=== PATIENT | male | born 1990 | race Caucasian/White ===

== ENCOUNTER 2018-04-25 01:41 | Inpatient (IN) ==
--- NOTE | 2018-04-25 02:09 | Emergency Department Note ---
Disposition Clinical Impression: Suicidal ideation Disposition: Admitted As Inpatient Condition: Fair Forms: ED Satisfaction Letter General Adult HPI - General Chief complaint: ED Psychiatric Symptoms Stated complaint: SI Time Seen by Provider: 04/25/18 02:05 Source: patient Limitations: no limitations - History of Present Illness HPI Narrative: Pt transferred for psych eval. Required labs already completed at outlying facility. Presenting with SI, still having suicidal thoughts now. No HI. No complaint of fever, pain, vomiting or other physical complaint. Pain Scale: 0 All systems ED: reviewed and negative except as stated. Past Medical History - Past Medical History Medical history: Reports: no medical history Psychiatric history: Reports: depression - Social History Smoking Status: Never smoker Smokeless Tobacco Status: No Alcohol use: Reports: occasionally Drug use: Reports: none Physical Exam Vital signs noted, please see nurses notes. General: Well-developed, well-nourished patient sitting up in bed who appears non-toxic. Head: Atraumatic, normocephalic. Eyes: Sclera anicteric. ENT: Mucous membranes moist. Respiratory: Normal respiratory pattern without respiratory distress. Skin: Warm and dry, no appreciable rash. Neurological: Awake and alert with normal speech, gait and mental status. No focal deficits or lateralizing signs. Psychiatric: Normal mood and affect. Makes good eye contact. - General Limitations: no limitations General appearance: alert Course Vital Signs Temperature 98.3 F 04/25/18 01:49 Pulse Rate 91 04/25/18 01:49 Respiratory Rate 16 04/25/18 01:49 Blood Pressure 125/76 04/25/18 01:49 O2 Sat by Pulse Oximetry 99 04/25/18 01:49 Temperature 98.3 F 04/25/18 01:49 Pulse Rate 91 04/25/18 01:49 Respiratory Rate 16 04/25/18 01:49 Blood Pressure 125/76 04/25/18 01:49 O2 Sat by Pulse Oximetry 99 04/25/18 01:49 Oxygen Delivery Oxygen Delivery Room Air
[2018-04-25] MEDS ORDERED: *HR* LORazepam 2 MG/ML VIAL IM PRN (05:22)
[2018-04-25] MEDS ORDERED: *HR* LORazepam 1 MG TABLET PO PRN (05:22)
[2018-04-25] MEDS ORDERED: Haloperidol Lactate 5 MG/ML VIAL IM PRN (05:22)
[2018-04-25] MEDS ORDERED: Mag Hydrox/Al Hydrox/Simeth 30 ML UDC PO PRN (05:22)
[2018-04-25] MEDS ORDERED: hydrOXYzine pamoate 25 MG CAPSULE PO PRN (05:22)
[2018-04-25] MEDS ORDERED: MOM Conc 10 ML UD.LIQ PO PRN (05:22)
[2018-04-25] MEDS ORDERED: traZODone 50 MG TABLET PO PRN (05:22)
[2018-04-25] MEDS ORDERED: Ibuprofen 400 MG TABLET PO PRN (05:22)
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
[2018-04-25] MEDS: risperiDONE 1 MG TABLET PO SCH (20:53)
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
[2018-04-26] MEDS: risperiDONE 1 MG TABLET PO SCH (20:31)
[2018-04-27 09:10] VITALS: BP 126/79
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
== END 2018-04-27 18:55 | disposition home or self-care (01) | DRG 751 ==
LOC: EMEROOARM 01:41 → 1ANU 03:35
PROVIDERS: ADMIT Psychiatry & Neurology Psychiatry; ATTEND Psychiatry & Neurology Psychiatry